=== PATIENT | female | born 1945 | race Two or more races ===

== ENCOUNTER → 2021-03-03 10:15 | Outpatient (CLI) | payer OTHER | END | disposition home or self-care (01) | LOC: MRI 09:45 | PROVIDERS: ATTEND Neuromusculoskeletal Medicine & OMM | DX: G93.89 Other specified disorders of brain (principal); G31.84 Mild cognitive impairment of uncertain or unknown etiology | CPT/HCPCS: 70551 ==

== ENCOUNTER 2024-04-18 13:28 | Outpatient (CLI) | payer OTHER | END 2024-04-18 13:42 | disposition home or self-care (01) | LOC: MRI 13:28 | PROVIDERS: ATTEND Neuromusculoskeletal Medicine & OMM | DX: R41.3 Other amnesia (principal) | CPT/HCPCS: 70553; Q9965 ==

== ENCOUNTER 2024-04-28 09:09 | Outpatient (CLI) | payer OTHER | END 2024-04-28 09:10 | disposition home or self-care (01) | LOC: NUCLEAR 09:09 | PROVIDERS: ATTEND Neuromusculoskeletal Medicine & OMM | DX: G30.9 Alzheimer's disease, unspecified (principal); G31.09 Other frontotemporal neurocognitive disorder | CPT/HCPCS: 78608; A9552 ==